=== PATIENT | female | born 1985 | race Caucasian/White ===

== ENCOUNTER 2020-10-18 22:16 | Emergency (ER) | payer MEDICAID ==
[~2020-10-18] VITALS: Ht 177.8 cm; Wt 112.0 kg
[2020-10-18] MEDS ORDERED: ALBUTEROL (0.083%) 2.5MG/3ML NEB HHN STA (22:37)
[2020-10-19] VITALS: BP 115/74
[2020-10-19] MEDS ORDERED: AZIT250T12 PO (00:06)
[2020-10-19] MEDS ORDERED: AZITHROMYCIN 500 MG TABLET PO ONE (00:15)
== END 2020-10-19 00:25 | disposition home or self-care (01) ==
LOC: ER 22:16
DX: J40 Bronchitis, not specified as acute or chronic (principal); F17.290 Nicotine dependence, other tobacco product, uncomplicated
CPT/HCPCS: 71045; 81025; 94640; 99283; Z7610